=== PATIENT | female | born 1985 | race Caucasian/White ===

== ENCOUNTER 2018-08-06 06:39 | Day surgery (SDC) | payer MEDICAID ==
[2018-08-06] MEDS ORDERED: Sodium Chloride 0.9% 1,000 ML IV SCH (07:00)
[2018-08-06] MEDS ORDERED: Propofol 200 MG/20 ML SDV ONE (07:35)
[2018-08-06] MEDS ORDERED: fentaNYL 100 MCG/2 ML SDV ONE (07:36)
[2018-08-06] MEDS ORDERED: Midazolam 1 MG/ML 2 ML SDV ONE (07:36)
--- NOTE | 2018-08-06 08:47 | OR ---
DATE OF PROCEDURE: 08/06/2018 PROCEDURE PERFORMED: 1. [place] pH monitor placement. 2. EGD. FINDINGS: No abnormalities. COMPLICATIONS: None. CONTRACT POST OFFICE CLERK: None. ANESTHESIA: MAC. RISKS: Risks, benefits, alternatives, and limitations including, but not limited to infection, bleeding, and perforation were explained to the patient who wished to proceed. PROCEDURE IN DETAIL: The patient was placed in left lateral decubitus position. The EGD scope was introduced atraumatically into the second part of the duodenum. No ulceration or abnormality in the gastric antrum. There were no abnormalities. The GE junction showed minimal to no inflammation. The esophagus was inspected without abnormality. The patient tolerated the procedure well. Andrea Goodman MD /[id number]
[2018-08-06 09:20] VITALS: BP 113/77
== END 2018-08-06 10:00 | disposition home or self-care (01) ==
LOC: JP.SDS 06:39
PROVIDERS: ATTEND Surgery
DX: K21.9 Gastro-esophageal reflux disease without esophagitis (principal); R10.13 Epigastric pain
CPT/HCPCS: 43235; 81025; J2250; J2704; J3010; J7030

== ENCOUNTER 2019-02-25 05:31 | Emergency (ER) | payer MEDICAID ==
[2019-02-25 05:44] VITALS: BP 132/81
--- NOTE | 2019-02-25 06:24 | EDM.PDOC ---
ED HPI GENERAL MEDICAL PROBLEM - General Chief Complaint: Chest Pain Stated Complaint: CHEST PAINS/RAPIDS HEART RATE Time Seen by Provider: 02/25/19 06:21 Source of Information: Reports: Patient History Limitations: Reports: No Limitations - History of Present Illness INITIAL COMMENTS - FREE TEXT/NARRATIVE: pt arrived with a history of waking up sweaty and feeling like her heart was raspid. Pt was sweaty at that time. Onset: Today, Sudden, Other (pt weoke up with the palpitation. ) Duration: Hour(s): Location: Reports: Chest, Other (chest did feel tight. Pt was up late and did not get to bed until about 2 am. ) Associated Symptoms: Reports: No Other Symptoms Anterior Chest Pain Score (Numeric/FACES): 2 - Related Data Allergies Allergy/AdvReac Type Severity Reaction Status Date / Time doxycycline Allergy Swelling Verified 08/06/18 07:22 egg Allergy Hives Verified 08/06/18 07:22 iodine Allergy Hives Verified 08/06/18 07:22 Sulfa (Sulfonamide Allergy Itching Verified 08/06/18 07:22 Antibiotics) sulfamethoxazole Allergy Tachycardia Verified 08/06/18 07:22 [From Bactrim] trimethoprim [From Bactrim] Allergy Tachycardia Verified 08/06/18 07:22 amoxicillin [From Augmentin] AdvReac Diarrhea Verified 08/06/18 07:22 clavulanic acid AdvReac Diarrhea Verified 08/06/18 07:22 [From Augmentin] shellfish derived AdvReac Nausea Verified 08/06/18 07:22 Home Meds: Home Meds LORazepam 1 mg PO Q8HR PRN 08/03/15 [History] Cetirizine HCl [Zyrtec] 20 mg PO DAILY 08/02/18 [History] Multivitamin with Minerals [Multiple Vitamin] 1 tab PO DAILY 08/02/18 [History] Omeprazole 20 mg PO DAILY 02/25/19 [History] Past Medical History Other HEENT History: TMJ Other Cardiovascular History: palpitations Other Respiratory History: cough Gastrointestinal History: Reports: GERD Other OFFICE NURSE History: herpes. is on injected bc shot q 3 mo Musculoskeletal History: Reports: Fracture Other Musculoskeletal History: wrist Neurological History: Reports: Headaches, Chronic Psychiatric History: Reports: Depression, Panic Attack - Infectious Disease History Infectious Disease History: Reports: C-Difficile, Chicken Pox, Scarlet Fever - Past Surgical History GI Surgical History: Reports: EGD Social & Family History - Family History Family Medical History: Noncontributory - Tobacco Use Smoking Status *Q: Never Smoker - Caffeine Use Caffeine Use: Reports: None - Recreational Drug Use Recreational Drug Use: No ED ROS GENERAL - Review of Systems Review Of Systems: See Below Constitutional: Reports: No Symptoms HEENT: Reports: No Symptoms Respiratory: Reports: No Symptoms, Other (mild sob. She tried to keep her breathing slowed down. ) Endocrine: Reports: No Symptoms GI/Abdominal: Reports: No Symptoms : Reports: No Symptoms Musculoskeletal: Reports: No Symptoms Psychiatric: Reports: Anxiety ED EXAM, GENERAL - Physical Exam Exam: See Below Free Text/Narrative:: pt woke up from a sound sleep. Her heart was racing and she did feel very mildly tight in her chest. She did not have chest pain. She has had some panic attacks in the past. Exam Limited By: No Limitations General Appearance: Alert, Anxious Ears: Normal TMs Nose: Normal Inspection Throat/Mouth: Normal Inspection Head: Atraumatic Neck: Normal Inspection Respiratory/Chest: No Respiratory Distress Cardiovascular: Regular Rate, Rhythm, Other (ashford is 90 at this time. ) GI/Abdominal: Soft, Non-Tender (Female) Exam: Deferred Rectal (Female) Exam: Deferred Back Exam: Normal Inspection Extremities: Normal Inspection Neurological: Alert, Oriented, Normal Cognition Psychiatric: Normal Affect Course - Vital Signs Last Recorded V/S: Last Vital Signs Temp 37.1 C 02/25/19 05:43 Pulse 92 02/25/19 05:43 Resp 10 L 02/25/19 05:43 BP 132/81 02/25/19 05:43 Pulse Ox 99 02/25/19 05:43 - Orders/Labs/Meds Orders: Active Orders 24 hr Category Date Time Status EKG Documentation Completion [RC] ASDIRECTED Care 02/25/19 06:24 Active EKG 12 Lead [EK] Routine Ther 02/25/19 06:24 Ordered Labs: Laboratory Tests 02/25/19 02/25/19 02/25/19 Range/Units 06:24 06:24 06:24 WBC 10.7 (4.5-11.0) K/uL RBC 4.48 (3.30-5.50) M/uL Hgb 12.7 (12.0-15.0) g/dL Hct 38.7 (36.0-48.0) % MCV 86 (80-98) fL MCH 28 (27-31) pg MCHC 33 (32-36) % Plt Count 336 (150-400) K/uL Neut % (Auto) 57 (36-66) % Lymph % (Auto) 32 (24-44) % [place] % (Auto) 9 H (2-6) % Eos % (Auto) 1 L (2-4) % Baso % (Auto) 0 (0-1) % Sodium 140 (140-148) mmol/L Potassium 3.2 L (3.6-5.2) mmol/L Chloride 103 (100-108) mmol/L Carbon Dioxide 26 (21-32) mmol/L Anion Gap 14.2 H (5.0-14.0) mmol/L BUN 10 (7-18) mg/dL Creatinine 0.8 (0.6-1.0) mg/dL Est Cr Clr Drug Dosing 94.51 mL/min Estimated GFR (MDRD) > 60 (>60) Glucose 122 H (74-106) mg/dL Calcium 9.4 (8.5-10.1) mg/dL Total Bilirubin 0.3 (0.2-1.0) mg/dL AST 13 L (15-37) U/L ALT 23 (12-78) U/L Alkaline Phosphatase 78 (46-116) U/L Troponin I (0.000-0.056) ng/mL Total Protein 7.3 (6.4-8.2) g/dL Albumin 3.5 (3.4-5.0) g/dL Globulin 3.8 H (2.3-3.5) g/dL Albumin/Globulin Ratio 0.9 L (1.2-2.2) TSH, Ultra Sensitive 5.772 H (0.358-3.740) uIU/mL 02/25/19 Range/Units 06:31 WBC (4.5-11.0) K/uL RBC (3.30-5.50) M/uL Hgb (12.0-15.0) g/dL Hct (36.0-48.0) % MCV (80-98) fL MCH (27-31) pg MCHC (32-36) % Plt Count (150-400) K/uL Neut % (Auto) (36-66) % Lymph % (Auto) (24-44) % [place] % (Auto) (2-6) % Eos % (Auto) (2-4) % Baso % (Auto) (0-1) % Sodium (140-148) mmol/L Potassium (3.6-5.2) mmol/L Chloride (100-108) mmol/L Carbon Dioxide (21-32) mmol/L Anion Gap (5.0-14.0) mmol/L BUN (7-18) mg/dL Creatinine (0.6-1.0) mg/dL Est Cr Clr Drug Dosing mL/min Estimated GFR (MDRD) (>60) Glucose (74-106) mg/dL Calcium (8.5-10.1) mg/dL Total Bilirubin (0.2-1.0) mg/dL AST (15-37) U/L ALT (12-78) U/L Alkaline Phosphatase (46-116) U/L Troponin I < 0.017 (0.000-0.056) ng/mL Total Protein (6.4-8.2) g/dL Albumin (3.4-5.0) g/dL Globulin (2.3-3.5) g/dL Albumin/Globulin Ratio (1.2-2.2) TSH, Ultra Sensitive (0.358-3.740) uIU/mL Meds: Medications Discontinued Medications Generic Name Dose Route Start Last Admin Trade Name Freq PRN Reason Stop Dose Admin Lorazepam 0.5 mg 02/25/19 06:20 02/25/19 06:30 Ativan PO 02/25/19 06:21 0.5 mg ONETIME ONE Administration - Re-Assessments/Exams Free Text/Narrative Re-Assessment/Exam: 02/25/19 06:35 pt arrived with palpitation Her heart rate is 90 and a normal sinus rhythm. Her ekg out in the field was the same. 02/25/19 07:04 pt had a mildly elevated tsh, her trop was normal. Her k was 3.2. Departure - Departure Time of Disposition: 07:06 Disposition: Home, Self-Care 01 Condition: Fair Clinical Impression: Rapid heart beat, Anxiety Referrals: PCP,None [Primary Care Provider] - Forms: ED Department Discharge Care Plan Goals: , , -- she has an appt with her Dr on Sunday,copy of lab work to go with the pt , If further symptoms she could use the ativan which she has at home, kcl 10meq 1 tab bid for the next 5 days, high k foods - My Orders Last 24 Hours: My Active Orders 02/25/19 06:24 EKG Documentation Completion [RC] ASDIRECTED EKG 12 Lead [EK] Routine - Assessment/Plan Last 24 Hours: My Active Orders 02/25/19 06:24 EKG Documentation Completion [RC] ASDIRECTED EKG 12 Lead [EK] Routine
[2019-02-25] MEDS: LORazepam 0.5 MG Tab PO ONE (06:30)
[2019-02-25] MEDS: Potassium Chloride 20 MEQ Tab.ER PO ONE (07:21)
== END 2019-02-25 07:31 | disposition home or self-care (01) ==
LOC: JP.ED 05:31
DX: F41.9 Anxiety disorder, unspecified (principal); K21.9 Gastro-esophageal reflux disease without esophagitis; F32.9 Major depressive disorder, single episode, unspecified; Z79.899 Other long term (current) drug therapy; Z91.013 Allergy to seafood; Z88.1 Allergy status to other antibiotic agents; Z91.012 Allergy to eggs; Z88.2 Allergy status to sulfonamides; Z91.09 Other allergy status, other than to drugs and biological substances
CPT/HCPCS: 36415; 80053; 84443; 84484; 85025; 93005; 99285; A9270

== ENCOUNTER → 2019-09-11 | Day surgery (SDC) | payer MEDICAID ==
[~2019-09-11] MED LIST: Midazolam 1 MG/ML 2 ML SDV ONE; Propofol 200 MG/20 ML SDV ONE; Sodium Chloride 0.9% 1,000 ML IV SCH; fentaNYL 100 MCG/2 ML SDV ONE
[2019-09-11 09:56] VITALS: BP 128/75; PULSE 80
--- NOTE | 2019-09-11 11:47 | OR ---
DATE OF PROCEDURE: 09/11/2019 SURGEON: Andrea Goodman MD PROCEDURE: Esophagogastroduodenoscopy. FINDINGS: Very mild inflammation of the GE junction. COMPLICATIONS: None. WRAPPER OFF: None. PREOPERATIVE DIAGNOSIS: Abdominal pain/evaluation for gastroesophageal reflux disease. POSTOPERATIVE DIAGNOSIS: Abdominal pain/evaluation for gastroesophageal reflux disease. RISKS: Risks, benefits, alternatives, and limitations including, but not limited to infection, bleeding, and perforation were explained to the patient, and they wished to proceed. PROCEDURE IN DETAIL: The patient was placed in left lateral decubitus position. The EGD scope was introduced and advanced atraumatically to second part of the duodenum. No evidence of duodenitis or ulcerations. The scope was brought back to the stomach and retroflexed. No evidence of gastritis. No hiatal hernia. The GE junction shows very mild inflammation consistent with reflux disease. This was biopsied in all 4 quadrants. The remainder of the esophagus was normal. The patient tolerated the procedure well. Andrea Goodman MD /[id number]
== END ==
LOC: JP.SDS 07:33
PROVIDERS: ATTEND Surgery
DX: K21.9 Gastro-esophageal reflux disease without esophagitis (principal); K22.8 Other specified diseases of esophagus; R10.9 Unspecified abdominal pain; K58.9 Irritable bowel syndrome, unspecified; F41.9 Anxiety disorder, unspecified; F32.9 Major depressive disorder, single episode, unspecified
CPT/HCPCS: 43239; J2250; J2704; J3010; J7030; 88305

== ENCOUNTER 2020-10-14 14:28 | Emergency (ER) | payer MEDICAID ==
[2020-10-14] MEDS ORDERED: Metoprolol Tartrate 25 MG Tab PO ONE (15:11)
[2020-10-14 15:18] VITALS: BP 141/85; PULSE 82
--- NOTE | 2020-10-14 15:19 | EDM.PDOC ---
ED HPI GENERAL MEDICAL PROBLEM - General Chief Complaint: Cardiovascular Problem Stated Complaint: RAPID HEART RATE Time Seen by Provider: 10/14/20 15:00 Source of Information: Reports: Patient, Old Records, RN History Limitations: Reports: No Limitations - History of Present Illness INITIAL COMMENTS - FREE TEXT/NARRATIVE: 35 yo female presents after a few spellsl recently of tachycardia. She has been previously dx with POTS(postural orthostatic tachycardia syndrome) and is managed with metoprolol tartrate 25 mg bid. In general this has been working for her until the last 24 hrs or so. She had called EMS for a HR of around 140, but by the time they arrived her HR had come down and she elected to drive to the ER. Recent episodes of tachycardia were not associated with changes in posture from sitting to standing. She had no associated sx's like SOB or CP, but was somewhat worried about a heart attack. Her mother has afib. Maryam is a non- smoker. She is feeling her baseline now here in the ER. She has not missed any doses of her metoprolol tartrate. Onset: Today Onset Date: 10/14/20 Duration: Intermittent, Waxing/Waning Location: Reports: Chest Quality: Reports: Other (no associated pain) Severity: Moderate Improves with: Reports: Other (time?) Worsens with: Reports: Other (unknown trigger) Context: Reports: Other (See HPI) Associated Symptoms: Reports: No Other Symptoms Treatments PRODUCTION DISPATCHER: Reports: Other (see below) (none) Chest Pain Score (Numeric/FACES): 3 - Related Data Allergies Allergy/AdvReac Type Severity Reaction Status Date / Time doxycycline Allergy Swelling Verified 10/14/20 14:42 egg Allergy Hives Verified 10/14/20 14:42 iodine Allergy Hives Verified 10/14/20 14:42 Sulfa (Sulfonamide Allergy Itching Verified 10/14/20 14:42 Antibiotics) sulfamethoxazole Allergy Tachycardia Verified 10/14/20 14:42 [From Bactrim] trimethoprim [From Bactrim] Allergy Tachycardia Verified 10/14/20 14:42 amoxicillin [From Augmentin] AdvReac Diarrhea Verified 10/14/20 14:42 clavulanic acid AdvReac Diarrhea Verified 10/14/20 14:42 [From Augmentin] shellfish derived AdvReac Nausea Verified 10/14/20 14:42 Home Meds: Home Meds Multivitamin with Minerals [Multiple Vitamin] 1 tab PO DAILY 08/02/18 [History] Omeprazole 10 mg PO DAILY 02/25/19 [History] ALPRAZolam [Xanax] 0.25 mg PO BID PRN 09/09/19 [History] Metoprolol Tartrate [Lopressor] 25 mg PO DAILY 09/09/19 [History] Ethinyl Estradiol/Drospirenone [Drospirenone-Ee 3-0.02 mg Tab] 1 tab PO DAILY 10/14/20 [History] Past Medical History HEENT History: Reports: Other (See Below) Other HEENT History: TMJ Cardiovascular History: Reports: Other (See Below) Other Cardiovascular History: palpitations. 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 bc shot q 3 mo Musculoskeletal History: Reports: Fracture Other Musculoskeletal History: wrist Neurological History: Reports: Headaches, Chronic Psychiatric History: Reports: Depression, Panic Attack - Infectious Disease History Infectious Disease History: Reports: C-Difficile, Chicken Pox, Scarlet Fever - Past Surgical History GI Surgical History: Reports: EGD Social & Family History - Family History Family Medical History: No Pertinent Family History - Tobacco Use Tobacco Use Status *Q: Never Tobacco User - Caffeine Use Caffeine Use: Reports: None - Recreational Drug Use Recreational Drug Use: No ED ROS GENERAL - Review of Systems Review Of Systems: See Below Constitutional: Reports: No Symptoms HEENT: Reports: No Symptoms Respiratory: Reports: No Symptoms Cardiovascular: Reports: Palpitations Endocrine: Reports: No Symptoms GI/Abdominal: Reports: No Symptoms : Reports: No Symptoms Musculoskeletal: Reports: No Symptoms Skin: Reports: Diaphoresis (mild at time of maximum HR) Neurological: Reports: No Symptoms ED EXAM, GENERAL - Physical Exam Exam: See Below Exam Limited By: No Limitations General Appearance: Alert, WD/WN, No Apparent Distress Eye Exam: Bilateral Eye: Normal Inspection Ears: Normal External Exam, Normal Canal, Hearing Grossly Normal Ear Exam: Bilateral Ear: Auricle Normal, Canal Normal Nose: Normal Inspection, No Blood Throat/Mouth: Normal Inspection, Normal Lips, Normal Oropharynx, Normal Voice, No Airway Compromise Head: Atraumatic, Normocephalic Neck: Normal Inspection Respiratory/Chest: No Respiratory Distress, Lungs Clear, Normal Breath Sounds, No Accessory Muscle Use Cardiovascular: Regular Rate, Rhythm, No Edema Extremities: Normal Inspection. No: Pedal Edema Neurological: Alert, Oriented, CN II-XII Intact, Normal Cognition, No Motor/Sensory Deficits Psychiatric: Normal Affect, Normal Mood Skin Exam: Warm, Dry, Intact, Normal Color, No Rash Course - Vital Signs Last Recorded V/S: Last Vital Signs Temp 37 C 10/14/20 14:43 Pulse 82 10/14/20 15:18 Resp 10 L 10/14/20 14:43 BP 141/85 H 10/14/20 15:18 Pulse Ox 98 10/14/20 14:43 Orthostatic Blood Pressure [ 123/85 Standing] Orthostatic Blood Pressure [ 130/93 Sitting] Orthostatic Blood Pressure [ 125/68 Supine] - Orders/Labs/Meds Labs: Laboratory Tests 10/14/20 10/14/20 Range/Units 15:20 15:20 WBC 7.2 (4.5-11.0) K/uL RBC 4.69 (3.30-5.50) M/uL Hgb 13.2 (12.0-15.0) g/dL Hct 40.7 (36.0-48.0) % MCV 87 (80-98) fL MCH 28 (27-31) pg MCHC 32 (32-36) % Plt Count 368 (150-400) K/uL Sodium 138 L (140-148) mmol/L Potassium 3.5 L (3.6-5.2) mmol/L Chloride 101 (100-108) mmol/L Carbon Dioxide 25 (21-32) mmol/L Anion Gap 15.5 H (5.0-14.0) mmol/L BUN 6 L (7-18) mg/dL Creatinine 0.8 (0.6-1.0) mg/dL Est Cr Clr Drug Dosing 92.76 mL/min Estimated GFR (MDRD) > 60 (>60) Glucose 127 H (74-106) mg/dL Calcium 8.8 (8.5-10.1) mg/dL Troponin I < 0.017 (0.000-0.056) ng/mL TSH, Ultra Sensitive 3.674 (0.358-3.740) uIU/mL Meds: Medications Discontinued Medications Generic Name Dose Route Start Last Admin Trade Name Freq PRN Reason Stop Dose Admin Metoprolol Tartrate 25 mg 12/03/20 15:11 10/14/20 15:18 Lopressor PO 10/14/20 15:12 25 mg ONETIME ONE Administration Departure - Departure Time of Disposition: 16:05 Disposition: Home, Self-Care 01 Condition: Good Clinical Impression: Tachycardia Referrals: Caitlyn Burroughs CNM [Primary Care Provider] - Forms: ED Department Discharge Additional Instructions: Increase your metoprolol tartrate to 50 mg every 12 hrs. If this seems to control your symptoms, then discuss with your primary switching to metoprolol succinate for ease of use and more even around the clock coverage. Sepsis Event Note (ED) - Evaluation Sepsis Screening Result: No Definite Risk - Focused Exam Vital Signs: Vital Signs Temp Pulse Pulse Resp BP BP Pulse Ox 10/14/20 15:18 82 141/85 H 10/14/20 14:43 37 C 96 10 L 133/80 98
== END 2020-10-14 16:23 | disposition home or self-care (01) ==
LOC: JP.ED 14:28
DX: R00.0 Tachycardia, unspecified (principal); K21.9 Gastro-esophageal reflux disease without esophagitis; Z79.899 Other long term (current) drug therapy; Z88.1 Allergy status to other antibiotic agents; Z91.012 Allergy to eggs; Z91.048 Other nonmedicinal substance allergy status; Z88.2 Allergy status to sulfonamides; Z91.013 Allergy to seafood
CPT/HCPCS: 36415; 80048; 84443; 84484; 85027; 99284; A9270

== ENCOUNTER 2020-12-16 21:46 | Emergency (ER) | payer MEDICAID ==
[2020-12-16] MEDS ORDERED: Sodium Chloride 0.9% 10 ML Syringe FLUSH PRN (22:18)
[2020-12-16] MEDS ORDERED: Propranolol 80 MG Cap.ER PO ONE (23:36)
[2020-12-17] MEDS ORDERED: Propranolol 40 MG Tab PO STA (00:43)
[2020-12-17] MEDS ORDERED: methylPREDNISolone Sodium Succinate 125 MG/2 ML SDV IVPUSH ONE (01:16)
[2020-12-17] MEDS ORDERED: diphenhydrAMINE 50 MG/ML SDV IVPUSH ONE (01:16)
[2020-12-17] MEDS ORDERED: Ondansetron 4 MG/2 ML SDV IVPUSH ONE (01:16)
[2020-12-17] MEDS ORDERED: Iopamidol 612 MG/ML 100 ML Bottle IV STA (01:24)
--- NOTE | 2020-12-17 01:45 | EDM.PDOC ---
ED HPI GENERAL MEDICAL PROBLEM - General Chief Complaint: Chest Pain Stated Complaint: CHEST PAIN, RAPID RATE Time Seen by Provider: 12/16/20 22:15 Source of Information: Reports: Patient, Old Records History Limitations: Reports: No Limitations - History of Present Illness INITIAL COMMENTS - FREE TEXT/NARRATIVE: Maryam is a 35-year-old female presenting to the ED for evaluation of tachycardia, diaphoresis, nausea, and anxiety. Patient carries a diagnosis of postural orthostatic tachycardia syndrome (POTS) after having undergone a tilt table test in on 07/02/2020. The patient reports that early in the development of her episodic tachycardia with hypotension she would get lightheaded. It was also accompanied by abdominal pain and at times diarrhea. She states that when the symptoms come on they can last anywhere from 30 seconds to a couple of minutes and are usually accompanied by a very rapid heartbeat. She was seen by cardiology in [place], however, they referred her back to her PCP for a specialty consult with somebody that deals with postural orthostatic tachycardia syndrome. She did undergo an echocardiogram that did not show any valvular abnormalities, did demonstrate normal contractility without any regional wall motion abnormalities, and did show normal anatomy of the heart. He also had a 30 Day Loop recorder that demonstrated sinus tachycardia on 12 different occasions. The patient comes in tonight because her symptoms have been progressive and sustained for the last several hours which is unusual for her. Left Chest Pain Score (Numeric/FACES): 4 Right Upper Headache Pain Score (Numeric/FACES): 6 - Related Data Allergies Allergy/AdvReac Type Severity Reaction Status Date / Time doxycycline Allergy Swelling Verified 12/16/20 22:01 egg Allergy Hives Verified 12/16/20 22:01 iodine Allergy Hives Verified 12/16/20 22:01 Sulfa (Sulfonamide Allergy Itching Verified 12/16/20 22:01 Antibiotics) sulfamethoxazole Allergy Tachycardia Verified 12/16/20 22:01 [From Bactrim] trimethoprim [From Bactrim] Allergy Tachycardia Verified 12/16/20 22:01 amoxicillin [From Augmentin] AdvReac Diarrhea Verified 12/16/20 22:01 clavulanic acid AdvReac Diarrhea Verified 12/16/20 22:01 [From Augmentin] shellfish derived AdvReac Nausea Verified 12/16/20 22:01 Home Meds: Home Meds Multivitamin with Minerals [Multiple Vitamin] 1 tab PO DAILY 08/02/18 [History] Omeprazole 10 mg PO DAILY 02/25/19 [History] ALPRAZolam [Xanax] 0.25 mg PO BID PRN 09/09/19 [History] Metoprolol Tartrate [Lopressor] 50 mg PO DAILY 09/09/19 [History] Ethinyl Estradiol/Drospirenone [Drospirenone-Ee 3-0.02 mg Tab] 1 tab PO DAILY 10/14/20 [History] Propranolol HCl [Propranolol HCl ER] 120 mg PO DAILY #30 cap.sa.24h 12/17/20 [Rx] Past Medical History HEENT History: Reports: Other (See Below) Other HEENT History: TMJ Cardiovascular History: Reports: Other (See Below) Other Cardiovascular History: palpitations. POTs(tachycardia) Other Respiratory History: cough Gastrointestinal History: Reports: GERD Other [employer]ATIONAL [employer]ER History: herpes. is on injected bc shot q 3 mo Musculoskeletal History: Reports: Fracture Other Musculoskeletal History: wrist Neurological History: Reports: Headaches, Chronic Psychiatric History: Reports: Depression, Panic Attack - Infectious Disease History Infectious Disease History: Reports: C-Difficile, Chicken Pox, Scarlet Fever - Past Surgical History GI Surgical History: Reports: EGD Social & Family History - Family History Family Medical History: No Pertinent Family History - Tobacco Use Tobacco Use Status *Q: Never Tobacco User - Caffeine Use Caffeine Use: Reports: None - Recreational Drug Use Recreational Drug Use: No ED ROS GENERAL - Review of Systems Review Of Systems: See Below Constitutional: Reports: Diaphoresis HEENT: Reports: No Symptoms Respiratory: Reports: No Symptoms Cardiovascular: Reports: Lightheadedness, Palpitations Endocrine: Reports: No Symptoms GI/Abdominal: Reports: Abdominal Pain, Nausea : Reports: No Symptoms Musculoskeletal: Reports: No Symptoms Skin: Reports: Erythema (Flushed face and upper chest with episodes) Neurological: Reports: Dizziness Psychiatric: Reports: Anxiety Hematologic/Lymphatic: Reports: No Symptoms Immunologic: Reports: No Symptoms ED EXAM, GENERAL - Physical Exam Exam: See Below Exam Limited By: No Limitations General Appearance: Alert, Anxious, Mild Distress Eye Exam: Bilateral Eye: EOMI, PERRL Throat/Mouth: Normal Inspection, Normal Lips, Normal Teeth, Normal Gums, Normal Oropharynx, Normal Voice, No Airway Compromise Head: Atraumatic, Normocephalic Neck: Normal Inspection, Supple, Non-Tender, Full Range of Motion. No: Carotid Bruit, Lymphadenopathy (R), Lymphadenopathy (L) Respiratory/Chest: No Respiratory Distress, Lungs Clear, Normal Breath Sounds Cardiovascular: Normal Peripheral Pulses, Regular Rate, Rhythm, No Murmur, Tachycardia Peripheral Pulses: 2+: Radial (L), Radial (R), Posterior Tibial (L), Posterior Tibial (R) GI/Abdominal: Normal Bowel Sounds, Soft, No Organomegaly, No Distention, No Abnormal Bruit, No Mass, Tender (Epigastric tenderness). No: Guarding, Rigid, Rebound Back Exam: Normal Inspection, Full Range of Motion Extremities: Normal Inspection, Normal Range of Motion, Non-Tender, No Pedal Edema, Normal Capillary Refill Neurological: Alert, Oriented, CN II-XII Intact, Normal Cognition, No Motor/Sensory Deficits Psychiatric: Normal Affect, Anxious Skin Exam: Warm, Dry, Intact, Erythema (Flushed face when she has an episode accompanied by tachycardia.) Lymphatic: No Adenopathy #1 Interpretation EKG Date: 12/16/20 Time: 22:43 Rhythm: NSR Rate (Beats/Min): 105 Bruce: Normal P-Wave: Present QRS: Normal ST-T: Normal QT: Normal Comparison: No Change Course - Vital Signs Last Recorded V/S: Last Vital Signs Temp 37.3 C 12/16/20 22:06 Pulse 96 12/17/20 02:00 Resp 18 12/17/20 02:00 BP 124/81 12/17/20 02:00 Pulse Ox 100 12/17/20 02:00 Orthostatic Blood Pressure [ 145/94 Standing] Orthostatic Blood Pressure [ 115/86 Sitting] Orthostatic Blood Pressure [ 131/87 Supine] - Orders/Labs/Meds Orders: Active Orders 24 hr Category Date Time Status EKG Documentation Completion [RC] ASDIRECTED Care 12/16/20 22:18 Active Sodium Chloride 0.9% [Saline Flush] Med 12/16/20 22:18 Active 10 ml FLUSH ASDIRECTED PRN Saline Lock Insert [OM.PC] Routine Oth 12/16/20 22:18 Ordered EKG 12 Lead [EK] Routine Ther 12/16/20 22:18 Ordered Medication Orders Sodium Chloride (Saline Flush) 10 ml FLUSH ASDIRECTED PRN PRN Reason: Keep Vein Open Last Admin: 12/16/20 23:57 Dose: 10 ml Documented by: NOEMI Labs: Laboratory Tests 12/16/20 12/16/20 12/16/20 Range/Units 22:30 22:30 22:30 WBC 11.6 H (4.5-11.0) K/uL RBC 4.72 (3.30-5.50) M/uL Hgb 13.4 (12.0-15.0) g/dL Hct 41.6 (36.0-48.0) % MCV 88 (80-98) fL MCH 28 (27-31) pg MCHC 32 (32-36) % Plt Count 348 (150-400) K/uL Neut % (Auto) 61 (36-66) % Lymph % (Auto) 32 (24-44) % [place] % (Auto) 6 (2-6) % Eos % (Auto) 1 L (2-4) % Baso % (Auto) 0 (0-1) % D-Dimer, Quantitative 310.02 (0.0-500.0) ng/mL Sodium 140 (140-148) mmol/L Potassium 3.7 (3.6-5.2) mmol/L Chloride 103 (100-108) mmol/L Carbon Dioxide 22 (21-32) mmol/L Anion Gap 14.6 H (5.0-14.0) mmol/L BUN 8 (7-18) mg/dL Creatinine 0.8 (0.6-1.0) mg/dL Est Cr Clr Drug Dosing 92.76 mL/min Estimated GFR (MDRD) > 60 (>60) Glucose 104 (74-106) mg/dL Calcium 9.0 (8.5-10.1) mg/dL Total Bilirubin 0.1 L D (0.2-1.0) mg/dL AST 14 L (15-37) U/L ALT 19 (12-78) U/L Alkaline Phosphatase 61 (46-116) U/L Troponin I < 0.017 (0.000-0.056) ng/mL Total Protein 7.2 (6.4-8.2) g/dL Albumin 3.4 (3.4-5.0) g/dL Globulin 3.8 H (2.3-3.5) g/dL Albumin/Globulin Ratio 0.9 L (1.2-2.2) Free T4 (0.76-1.46) ng/dL TSH, Ultra Sensitive 3.921 H (0.358-3.740) uIU/mL 12/16/20 Range/Units 23:19 WBC (4.5-11.0) K/uL RBC (3.30-5.50) M/uL Hgb (12.0-15.0) g/dL Hct (36.0-48.0) % MCV (80-98) fL MCH (27-31) pg MCHC (32-36) % Plt Count (150-400) K/uL Neut % (Auto) (36-66) % Lymph % (Auto) (24-44) % [place] % (Auto) (2-6) % Eos % (Auto) (2-4) % Baso % (Auto) (0-1) % D-Dimer, Quantitative (0.0-500.0) ng/mL Sodium (140-148) mmol/L Potassium (3.6-5.2) mmol/L Chloride (100-108) mmol/L Carbon Dioxide (21-32) mmol/L Anion Gap (5.0-14.0) mmol/L BUN (7-18) mg/dL Creatinine (0.6-1.0) mg/dL Est Cr Clr Drug Dosing mL/min Estimated GFR (MDRD) (>60) Glucose (74-106) mg/dL Calcium (8.5-10.1) mg/dL Total Bilirubin (0.2-1.0) mg/dL AST (15-37) U/L ALT (12-78) U/L Alkaline Phosphatase (46-116) U/L Troponin I (0.000-0.056) ng/mL Total Protein (6.4-8.2) g/dL Albumin (3.4-5.0) g/dL Globulin (2.3-3.5) g/dL Albumin/Globulin Ratio (1.2-2.2) Free T4 0.88 (0.76-1.46) ng/dL TSH, Ultra Sensitive (0.358-3.740) uIU/mL Meds: Medications Generic Name Dose Route Start Last Admin Trade Name Freq PRN Reason Stop Dose Admin Sodium Chloride 10 ml 12/16/20 22:18 12/16/20 23:57 Saline Flush FLUSH 10 ml ASDIRECTED PRN Administration Keep Vein Open Discontinued Medications Generic Name Dose Route Start Last Admin Trade Name Freq PRN Reason Stop Dose Admin Diphenhydramine HCl 50 mg 12/17/20 01:16 12/17/20 01:24 Benadryl IVPUSH 12/17/20 01:17 50 mg ONETIME ONE Administration Sodium Chloride 76 mls @ 3.5 mls/sec 12/17/20 01:25 12/17/20 01:42 Normal Saline IV 12/17/20 01:26 3.5 mls/sec ASDIRECTED STA Administration Iopamidol 100 ml 12/17/20 01:24 12/17/20 01:42 Isovue-300 (61%) IV 12/17/20 01:25 100 ml . DIRECTED STA Administration Methylprednisolone Sodium Succinate 125 mg 12/17/20 01:16 12/17/20 01:24 Solu-Medrol IVPUSH 12/17/20 01:17 125 mg ONETIME ONE Administration Ondansetron HCl 4 mg 12/17/20 01:16 12/17/20 01:23 Zofran IVPUSH 12/17/20 01:17 4 mg ONETIME ONE Administration Propranolol HCl 80 mg 12/16/20 23:36 12/16/20 23:56 Inderal La PO 12/16/20 23:37 80 mg ONETIME ONE Administration Propranolol HCl 40 mg 12/17/20 00:43 12/17/20 00:49 Inderal PO 12/17/20 00:44 40 mg ONETIME STA Administration - Radiology Interpretation Free Text/Narrative:: Reviewed the report on the CT of the abdomen and pelvis with contrast. There is slight steatosis of the liver with a subcentimeter higher than water attenuation lateral left hepatic low-density lesion on image 31. Its possible that this is a hemangioma. The gallbladder showed apparent subtle ill-defined reticular densities within the gallbladder possibly due to artifact although sludge or poorly calcified gallstones are possible. Appendix was normal. - Re-Assessments/Exams Free Text/Narrative Re-Assessment/Exam: 12/17/20 02:37 the patient did not take her metoprolol dose this evening so we will try propranolol LA 80 mg to try to control her tachycardia. This was administered and she was observed for 30 minutes without improvement so she was given an additional dose of propranolol short acting 40 mg. She continued to have significant tachycardia and repeated episodes of flushing associated with rates in the 130 bpm range. Each would last about 30 seconds and be associated with some diaphoresis. My concern is that this is not POTS but in fact carcinoid syndrome especially given the flushing and the pattern of recurrence. In further discussion with the patient, she does have a history for anxiety and depression and had been placed on SSRIs in the past but was never tolerant of them in fact they would make her much worse also raising the question of carcinoid as an SSRI would make her almost have a serotonin crisis. We did proceed with a CT of the abdomen and pelvis with contrast to evaluate for possible neuroendocrine tumors. She had one small area on the liver in the left lobe seen on image 31 there was hypodense but denser than water and possibly could be a hemangioma, however, it also cannot exclude this being a neuroendocrine tumor. I recommend that she follow-up with her primary care provider to obtain a 24-hour urine collection for 5HIAA which is the active metabolite of serotonin. If she does have carcinoid syndrome she would be a candidate for octreotide therapy. There was no evidence for adrenal masses, however, pheochromocytoma cannot completely be excluded although it would be unlikely with the orthostatic hypotension. Her 24-hour urine collection can also be checked for metanephrines to rule out pheochromocytoma. Patient did have elevation of her TSH but does have low normal free T4 suggesting sick euth yroid. She should have this rechecked again in 6 months. At this time the patient is suitable for discharge home as she is feeling better after the administration of the propranolol and receiving the results of her CT scan. Indications return to the ED were discussed as well as recommendations for follow-up. All questions were answered prior to discharge. Departure - Departure Time of Disposition: 02:31 Disposition: Home, Self-Care 01 Condition: Good Clinical Impression: POTS (postural orthostatic tachycardia syndrome), Paroxysmal supraventricular tachycardia, Sick-euthyroid syndrome Instructions: Supraventricular Tachycardia, Adult, [id number], Postural Orthostatic Tachycardia Syndrome Referrals: Caitlyn Burroughs CNM [Primary Care Provider] - Forms: ED Department Discharge Care Plan Goals: I would recommend following up with your primary care provider to obtain a 24- hour 5HIAA urine to evaluate for possible carcinoid syndrome. Your symptoms are more fitting with carcinoid with the flushing and timing of events than with postural orthostatic tachycardia syndrome. In addition, the CT of the abdomen and pelvis shows the small area on the left lobe of your liver that may be a hemangioma but also could be a neuroendocrine tumor. I do think that we should rule this out as the management of this will be different than for POTS. We will put you on propranolol ER 120 mg daily. The prescription is for 30 days. Your primary care provider can refill this if it is helpful, however, they may need to increase the dose as needed. In addition I would recommend checking your thyroid TSH and free T4 again in 6 months. Certainly if you have recurrence of symptoms associated with chest pain, lightheadedness, dizziness or shortness of breath you should return to the ED for reevaluation. Sepsis Event Note (ED) - Evaluation Sepsis Screening Result: No Definite Risk - Focused Exam Vital Signs: Vital Signs Temp Pulse Resp BP Pulse Ox 12/17/20 02:00 96 18 124/81 100 12/17/20 00:00 115 H 140/90 12/16/20 23:00 126 H 12/16/20 22:30 108 H 11 L 161/92 H 96 12/16/20 22:06 37.3 C 121 H 16 167/100 H 98 12/16/20 21:53 37.3 C 121 H 16 167/100 H 98 - Problem List & Annotations (1) POTS (postural orthostatic tachycardia syndrome) SNOMED Code(s): 793401266 Code(s): I49.8 - OTHER SPECIFIED CARDIAC ARRHYTHMIAS Status: Chronic Priority: High Current Visit: Yes (2) Paroxysmal supraventricular tachycardia SNOMED Code(s): 24792461 Code(s): I47.1 - SUPRAVENTRICULAR TACHYCARDIA Status: Acute Priority: High Current Visit: Yes (3) Sick-euthyroid syndrome SNOMED Code(s): 025495889 Code(s): E07.81 - SICK-EUTHYROID SYNDROME Status: Chronic Priority: Medium Current Visit: Yes - Problem List Review Problem List Initiated/Reviewed/Updated: Yes - My Orders Last 24 Hours: My Active Orders 12/16/20 22:18 EKG Documentation Completion [RC] ASDIRECTED Sodium Chloride 0.9% [Saline Flush] 10 ml FLUSH ASDIRECTED PRN Saline Lock Insert [OM.PC] Routine EKG 12 Lead [EK] Routine - Assessment/Plan Last 24 Hours: My Active Orders 12/16/20 22:18 EKG Documentation Completion [RC] ASDIRECTED Sodium Chloride 0.9% [Saline Flush] 10 ml FLUSH ASDIRECTED PRN Saline Lock Insert [OM.PC] Routine EKG 12 Lead [EK] Routine
[2020-12-17 02:00] VITALS: BP 124/81; PULSE 96
--- NOTE | 2020-12-17 02:14 | CRLCT ---
INDICATION: Abdominal pain. Tachycardia. Hypertension TECHNIQUE: CT abdomen and pelvis acquired with IV contrast. 100 mL of Isovue-300 administered. COMPARISON: None available FINDINGS: Lower chest: Unremarkable. Liver: Slight steatosis. A subcentimeter higher than water attenuation lateral left hepatic low-density lesion on image 31, not well evaluated. Spleen: Unremarkable. Pancreas: Unremarkable. Gallbladder and bile ducts: Apparent few subtle ill-defined reticular densities within the gallbladder could be artifactual, although sludge or poorly calcified gallstones are not excluded. Adrenal glands: Unremarkable. Kidneys: Unremarkable. GI tract: Unremarkable. Appendix is normal. Vascular structures: Unremarkable. Lymph nodes: Unremarkable. Miscellaneous: No significant free fluid or free air. Pelvic Organs: Mild bladder wall thickening which could be related to incomplete distention. No discrete uterine abnormality seen. Bones: Unremarkable for age. IMPRESSION: No evidence of appendicitis, diverticulitis or bowel obstruction. Mild bladder wall thickening versus underdistention. Correlate with urinalysis to exclude a UTI. A sub centimeter left hepatic low-density lesion which may represent a slow filling a meningioma, although not well evaluated. This can be better evaluated with contrast MRI. Dictated by Fermín Davila MD @ 12/17/2020 2:13:22 AM Please note that all CT scans at this facility use dose modulation, iterative reconstruction, and/or weight-based dosing when appropriate to reduce radiation dose to as low as reasonably achievable. Dictated by: Fermín Davila MD @ 12/17/2020 02:13:26 (Electronically Signed)
== END 2020-12-17 02:49 | disposition home or self-care (01) ==
LOC: JP.ED 21:46
DX: I47.1 Supraventricular tachycardia (principal); I49.8 Other specified cardiac arrhythmias; E07.81 Sick-euthyroid syndrome; K21.9 Gastro-esophageal reflux disease without esophagitis; Z79.899 Other long term (current) drug therapy; Z88.1 Allergy status to other antibiotic agents; Z91.012 Allergy to eggs; Z88.2 Allergy status to sulfonamides; Z88.8 Allergy status to other drugs, medicaments and biological substances; Z88.0 Allergy status to penicillin; Z91.013 Allergy to seafood
CPT/HCPCS: 36415; 74177; 80053; 84439; 84443; 84484; 85025; 85379; 93005; 93010; 96374; 96375; 99284; 99285; A9270; J1200; J2405; J2930; Q9967